=== PATIENT | female | born 1990 | race Caucasian/White ===

== ENCOUNTER 2016-07-17 21:19 | Emergency (ER) | payer BC ==
[2016-07-17] MEDS ORDERED: ACETAMINOPHEN 325 MG TABLET PO ONE (21:36)
[2016-07-17] MEDS ORDERED: ACETAMINOPHEN 325 MG TABLET ONE (21:40)
[2016-07-17 22:02] LABS: HEMATOCRIT 37.4 % (36.0-47.0); HEMOGLOBIN 13.1 g/dL (12.0-15.5); HGB HCT DIFFERENCE 1.9; MEAN CORPUSCULAR HEMOGLOBIN 31.3 pg (27.0-33.4); MEAN CORPUSCULAR HGB CONC 35.1 g/dL (32.0-36.0); MEAN CORPUSCULAR VOLUME 89 fl (80-97); RED CELL DISTRIBUTION WIDTH 12.7 % (11.5-14.0); WHITE BLOOD COUNT 5.8 10^3/uL (4.0-10.5)
[2016-07-17 22:10] LABS: APPEARANCE,URINE SLIGHTLY-CLOUDY; BILIRUBIN,URINE NEGATIVE (NEGATIVE); GLUCOSE, URINE NEGATIVE (NEGATIVE); KETONES,URINE 20 mg/dL (NEGATIVE); LEUKOCYTE ESTERASE,URINE TRACE (NEGATIVE); NITRITE,URINE NEGATIVE (NEGATIVE); PROTEIN,URINE NEGATIVE (NEGATIVE); URINE SPECIFIC GRAVITY 1.019
[2016-07-17 22:22] LABS: ALANINE AMINOTRANSFERASE 38 U/L (9-52); ALBUMIN 4.4 g/dL (3.5-5.0); ALKALINE PHOSPHATASE 50 U/L (38-126); ANION GAP 14 (5-19); ASPARTATE AMINO TRANSFERASE 32 U/L (14-36); BILIRUBIN,DIRECT 0.1 mg/dL (0.0-0.4); BILIRUBIN,TOTAL 0.6 mg/dL (0.2-1.3); BLOOD UREA NITROGEN 11 mg/dL (7-20); CALCIUM 9.3 mg/dL (8.4-10.2); CARBON DIOXIDE 26 mmol/L (22-30); CHLORIDE 97 mmol/L (98-107); CREATININE RESULT 0.64 mg/dL (0.52-1.25); GLUCOSE 112 mg/dL (75-110); POTASSIUM 3.5 mmol/L (3.6-5.0); SODIUM 136.5 mmol/L (137-145); TOTAL PROTEIN 7.1 g/dL (6.3-8.2)
[2016-07-17] MEDS ORDERED: IBUPROFEN 600 MG TABLET PO ONE (23:06)
--- NOTE | 2016-07-17 23:09 | ER Document Report ---
ED General - General Time seen by provider: 23:00 Mode of Arrival: Ambulatory Information source: Patient TRAVEL OUTSIDE OF THE [place] IN LAST 30 DAYS: No - HPI Onset: Other - see HPI note Similar symptoms previously: No Recently seen / treated by doctor: No <MARY COSTELLO - Last Filed: 07/18/16 01:16> <MARVIN LOPEZ - Last Filed: 07/18/16 02:58> - General Chief Complaint: Flu Symptoms Stated Complaint: POSSIBLE PINK EYE/FLU SYMPTOMS Notes: Patient is a 25 year old female presenting to the ED for flu like symptoms and discharge from her left eye. 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 Patient states she has had fevers, chills, body aches, and headaches. Patient states her left eye was red and swollen this morning and later became itchy with some green drainage. Patient states she took some ibuprofen for her fevers and she started taking Theraflu yesterday as a precaution. 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 Patient did not receive a flu shot this year. (MARY COSTELLO) - Related Data Allergies/Adverse Reactions: pseudoephedrine [From Sudafed] Allergy (Verified 07/17/16 21:33) Tachycardia Past Medical History - General Information source: Patient - Social History Smoking Status: Never Smoker Cigarette use (# per day): No Chew tobacco use (# tins/day): No Frequency of alcohol use: None Drug Abuse: None Family History: None Patient has suicidal ideation: No Patient has homicidal ideation: No - Past Medical History Cardiac Medical History: Reports: Hx Heart Murmur - 4/4 systolic ejection murmur Past Surgical History: Reports: Hx Cardiac Surgery, Hx Orthopedic Surgery - Immunizations Hx Diphtheria, Pertussis, Tetanus Vaccination: Yes <MARY COSTELLO - Last Filed: 07/18/16 01:16> Review of Systems - Review of Systems Constitutional: See HPI, Chills, Fever, Malaise EENT: See HPI, Eye pain, Eye discharge, Nose congestion Cardiovascular: No symptoms reported Respiratory: No symptoms reported Gastrointestinal: No symptoms reported Genitourinary: No symptoms reported Female Genitourinary: No symptoms reported Musculoskeletal: See HPI Skin: No symptoms reported Hematologic/Lymphatic: No symptoms reported Neurological/Psychological: See HPI, Headaches -: Yes All other systems reviewed and negative <MARY COSTELLO - Last Filed: 07/18/16 01:16> Physical Exam - Vital signs Interpretation: Tachycardic, Febrile - General General appearance: Appears well, Alert In distress: Mild - HEENT Head: Normocephalic, Atraumatic Eyes: Normal, Other - scleral reddness to the left eye Pupils: PERRL Mucous membranes: Moist - Respiratory Respiratory status: No respiratory distress Chest status: Nontender Breath sounds: Normal Chest palpation: Normal - Cardiovascular Rhythm: Regular Heart sounds: Normal auscultation Murmur: Yes - 07/03 systolic ejection - Abdominal Inspection: Normal Distension: No distension Bowel sounds: Normal Tenderness: Nontender Organomegaly: No organomegaly - Back Back: Normal, Nontender - Extremities General upper extremity: Normal inspection, Normal ROM, Normal strength General lower extremity: Normal inspection, Normal ROM, Normal strength - Neurological Neuro grossly intact: Yes Cognition: Normal Orientation: AAOx4 [place] Coma Scale Eye Opening: Spontaneous Ean Coma Scale Verbal: Oriented Ean Coma Scale Motor: Obeys Commands Ean Coma Scale Total: 15 Speech: Normal - Psychological Associated symptoms: Normal affect, Normal mood - Skin Skin Temperature: Warm Skin Moisture: Dry <MARY COSTELLO - Last Filed: 07/18/16 01:16> Course - Laboratory Result Diagrams: 07/17/16 21:45 07/17/16 21:45 <MARY COSTELLO - Last Filed: 07/18/16 01:16> - Laboratory Result Diagrams: 07/17/16 21:45 07/17/16 21:45 <MARVIN LOPEZ - Last Filed: 07/18/16 02:58> - Re-evaluation Re-evalutation: 07/18/16 02:56 Patient presents emergency Department with a 3 day history of fever Tmax 101 bodyaches nonproductive cough and today green-yellow discharge from her left eye. Patient states that she is not been exposed to anyone that she is aware of that has a flu. She's been taking TheraFlu and Tylenol which brings the fever down. Her cough is not productive of sputum and is no associated with shortness of breath. She denies any headaches altered mental status neck pain or stiffness. She has any chest pain shortness of breath recent history of travel surgery mobilization DVT or pulmonary emboli no nausea vomiting dull pain diarrhea or chance of . On examination patient is febrile otherwise well-appearing nontoxic no acute distress no meningeal signs and oriented 3 negative for the flu, will treat conjunctivitis with Bleph-10. Tylenol Motrin for fever. Primary care physician and discussed reasons for ED return sooner ( MARVIN LOPEZ) - Vital Signs Vital signs: Temp Pulse Resp BP Pulse Ox 98.5 F 76 16 98/52 L 99 07/17/16 22:47 07/18/16 00:28 07/18/16 00:28 07/18/16 00:28 07/18/16 00:28 - Laboratory Laboratory results interpreted by me: 07/17/16 07/17/16 21:45 21:45 Sodium 136.5 L Potassium 3.5 L Chloride 97 L Glucose 112 H Urine Ketones 20 H Urine Urobilinogen 2.0 H Ur Leukocyte Esterase TRACE H Urine Ascorbic Acid 40 H Discharge <MARY COSTELLO - Last Filed: 07/18/16 01:16> <MARVIN LOPEZ - Last Filed: 07/18/16 02:58> - Discharge Clinical Impression: acute upper respiratory illness, conjunctivitis of the left eye acute Condition: Stable Disposition: HOME, SELF-CARE Additional Instructions: Fever Fever is the body's reaction to infection. Fever can also occur with illnesses that create fever-producing substances in the body. By itself, fever is not harmful. It helps the body fight invading germs. We are more concerned with: (1) What's causing the fever? (2) How can we keep you more comfortable until the fever goes away? Early in an illness, symptoms are often so vague that a diagnosis can't be made. If the doctor hasn't identified a clear cause for your fever, you will probably develop new symptoms within the next two days. Contact the doctor if you develop severe worsening headache, rash, chest pain, cough with yellow or green sputum, difficulty breathing, abdominal pain, or other new symptoms. There is no reason to treat a fever if you're comfortable. If the fever is causing aches, headache, and fatigue, you can treat it with ibuprofen (Advil , Nuprin, etc) or acetaminophen (Tylenol). Follow the directions on the bottle. Get plenty of liquids (three quarts per day). Rest. Physical work or sports will raise the temperature higher and make you feel much worse. Dress lightly. If you're chilling, this means the temperature is trying to go higher. Take ibuprofen or acetaminophen. When you feel sweaty and "feverish" the temperature is coming down. If the fever doesn't go away within two days or if you become more ill, call the doctor or return at once for re-examination. Upper Respiratory Illness You have a viral infection of the respiratory passages -- a "cold." This common infection causes nasal congestion, drainage, and often sore throat and cough. It is caused by a virus and is highly contagious. The disease usually lasts a week or more, though the worst symptoms are usually over in 3 or 4 days. There is no "cure" for the viral infection -- it must run its course. If there is a complication, such as bacterial infection in the nose, sinuses, middle ear, or bronchial tubes, antibiotics may be required, but antibiotics won 't affect the virus. If you smoke, you should STOP!! Drink plenty of fluids. A humidifier may help. An expectorant medication or decongestant may make you more comfortable. Use acetaminophen or ibuprofen for fever or aches. See the doctor if fever persists over two or three days, if there is any significant worsening of your symptoms, or if you simply fail to improve as expected. Conjunctivitis You have an infection in your eye, commonly known as "pink eye." Conjunctivitis causes redness, mild discomfort, itching, and mattering on the eyelids. It is very contagious, so you must be careful to wash your hands after touching your face so you don't pass the infection on to others. Conjunctivitis is caused by both viruses and bacteria. It usually responds quickly to treatment with antibiotic drops. These should be placed in the eye as prescribed (usually every three to four hours while you're awake). If you wear contact lenses, don't put them in your eyes until the infection is cleared and you are no longer using the drops (unless your doctor advises you otherwise). Should you develop increasing eye pain, severe swelling, decreased vision, or fail to improve as expected, please return for re-examination. Prescriptions: Sulfacetamide Sodium [Bleph-10] 2 drop OD Q4H #5 ml Forms: Return to Work Referrals: [facility] [Provider Group] - Follow up in 3-5 days Scribe Attestation: 07/18/16 02:58 I personally performed the services described in the documentation reviewed the documentation recorded by my scribe in my presence and it accurately and completely records my words and actions (MARVIN LOPEZ) Scribe Documentation - Scribe Written by Scribe:: Mary Costello 07/18/16 1:06 acting as scribe for :: Stanley <MARY COSTELLO - Last Filed: 07/18/16 01:16>
[2016-07-18 00:29] VITALS: BP 98/52
== END 2016-07-18 00:29 | disposition home or self-care (01) ==
LOC: ER 21:19
DX: J39.9 Disease of upper respiratory tract, unspecified (principal); H10.32 Unspecified acute conjunctivitis, left eye; R50.9 Fever, unspecified; R00.0 Tachycardia, unspecified; R53.81 Other malaise; R05 Cough; R09.81 Nasal congestion; R01.1 Cardiac murmur, unspecified; Z88.8 Allergy status to other drugs, medicaments and biological substances
CPT/HCPCS: 36415; 71020; 80053; 81001; 81025; 85027; 87804; 99283

== ENCOUNTER 2016-12-08 17:25 | Emergency (ER) | payer BC ==
--- NOTE | 2016-12-08 18:02 | ER Document Report ---
ED Medical Screen (RME) - General Chief Complaint: Headache Stated Complaint: HEADACHE AND NUMBNESS Time Seen by Provider: 12/08/16 17:59 Mode of Arrival: Ambulatory Information source: Patient, Friend TRAVEL OUTSIDE OF THE [place] IN LAST 30 DAYS: No - HPI Patient complains to provider of: SCHILLING/numbness Onset: Other - pt with c/o SCHILLING with intermittent L side numbness for the past 1 and 1/2 weeks. - Related Data Allergies/Adverse Reactions: pseudoephedrine [From Sudafed] Allergy (Verified 12/08/16 17:29) Tachycardia Past Medical History - Past Medical History Cardiac Medical History: Reports: Hx Heart Murmur - / systolic ejection murmur Renal/ Medical History: Denies: Hx Peritoneal Dialysis Past Surgical History: Reports: Hx Cardiac Surgery, Hx Orthopedic Surgery - Immunizations Hx Diphtheria, Pertussis, Tetanus Vaccination: Yes Physical Exam - Vital signs Vitals: Temp Pulse Resp BP Pulse Ox 98.1 F 78 16 127/50 H 100 12/08/16 17:29 12/08/16 17:29 12/08/16 17:29 12/08/16 17:29 12/08/16 17:29 Course - Vital Signs Vital signs: Temp Pulse Resp BP Pulse Ox 98.1 F 78 16 127/50 H 100 12/08/16 17:29 12/08/16 17:29 12/08/16 17:29 12/08/16 17:29 12/08/16 17:29
[2016-12-08 18:37] LABS: ABSOLUTE EOSINOPHILS # (AUTO) 0.1 10^3/uL (0.0-0.6); ABSOLUTE LYMPHOCYTES (AUTO) 1.5 10^3/uL (0.5-4.7); ABSOLUTE MONOCYTES (AUTO) 0.7 10^3/uL (0.1-1.4); ABSOLUTE NEUT (AUTO) 3.9 10^3/uL (1.7-8.2); BASOPHILS % (AUTO) 0.4 % (0-2); EOSINOPHILS % (AUTO) 0.8 % (0-6); HEMATOCRIT 39.5 % (36.0-47.0); HEMOGLOBIN 13.2 g/dL (12.0-15.5); HGB HCT DIFFERENCE 0.1; LYMPHOCYTES % (AUTO) 24.7 % (13-45); MEAN CORPUSCULAR HEMOGLOBIN 30.9 pg (27.0-33.4); MEAN CORPUSCULAR HGB CONC 33.5 g/dL (32.0-36.0); MEAN CORPUSCULAR VOLUME 92 fl (80-97); MONOCYTES % (AUTO) 10.7 % (3-13); RED BLOOD COUNT 4.28 10^6/uL (3.72-5.28); RED CELL DISTRIBUTION WIDTH 13.8 % (11.5-14.0); SEGMENTED NEUTROPHILS % (AUTO) 63.4 % (42-78); WHITE BLOOD COUNT 6.1 10^3/uL (4.0-10.5)
[2016-12-08 18:48] LABS: ALANINE AMINOTRANSFERASE 31 U/L (9-52); ALBUMIN 5.1 g/dL (3.5-5.0); ALKALINE PHOSPHATASE 58 U/L (38-126); ANION GAP 15 (5-19); ASPARTATE AMINO TRANSFERASE 24 U/L (14-36); BILIRUBIN,DIRECT 0.3 mg/dL (0.0-0.4); BILIRUBIN,TOTAL 0.8 mg/dL (0.2-1.3); BLOOD UREA NITROGEN 16 mg/dL (7-20); CALCIUM 10.4 mg/dL (8.4-10.2); CARBON DIOXIDE 30 mmol/L (22-30); CHLORIDE 101 mmol/L (98-107); CREATININE RESULT 0.78 mg/dL (0.52-1.25); GLUCOSE 83 mg/dL (75-110); POTASSIUM 4.1 mmol/L (3.6-5.0); SODIUM 145.8 mmol/L (137-145); TOTAL PROTEIN 8.2 g/dL (6.3-8.2)
[2016-12-08 19:01] LABS: AMORPHOUS SEDIMENT,URINE TRACE /HPF; APPEARANCE,URINE SLIGHTLY-CLOUDY; BILIRUBIN,URINE NEGATIVE (NEGATIVE); GLUCOSE, URINE NEGATIVE (NEGATIVE); KETONES,URINE NEGATIVE (NEGATIVE); LEUKOCYTE ESTERASE,URINE SMALL (NEGATIVE); NITRITE,URINE NEGATIVE (NEGATIVE); PROTEIN,URINE NEGATIVE (NEGATIVE); UROBILINOGEN,URINE NEGATIVE mg/dL (<2.0)
--- NOTE | 2016-12-08 19:04 | RADIOLOGY REPORT (SQ) ---
EXAM DESCRIPTION: CT HEAD WITHOUT COMPLETED DATE/TIME: 12/08/2016 6:41 pm REASON FOR STUDY: SCHILLING with L side numbness COMPARISON: None. TECHNIQUE: Axial images acquired through the brain without intravenous contrast. Images reviewed wi th bone, brain and subdural windows. Images stored on PACS. All CT scanners at this facility use dose modulation, iterative reconstruction, and/or weight based d osing when appropriate to reduce radiation dose to as low as reasonably achievable (ALARA). [facility]: Dose Right [facility]: CareDose [facility]: Dose Right [facility]: Teradose 4D [facility]: [employer] RADIATION DOSE: Up-to-date CT equipment and radiation dose reduction techniques were employed. CTDIv ol: 64.6 mGy. DLP: 1163 mGy-cm. mGy. LIMITATIONS: None. FINDINGS: VENTRICLES: Normal size and contour. CEREBRUM: No masses. No hemorrhage. No midline shift. No evidence for acute infarction. Normal gra y/white matter differentiation. No areas of low density in the white matter. CEREBELLUM: No masses. No hemorrhage. No alteration of density. No evidence for acute infarction. EXTRAAXIAL SPACES: No fluid collections. No masses. ORBITS AND GLOBE: No intra- or extraconal masses. Normal contour of globe without masses. CALVARIUM: No fracture. PARANASAL SINUSES: No fluid or mucosal thickening. SOFT TISSUES: No mass or hematoma. OTHER: No other significant finding. IMPRESSION: NORMAL BRAIN CT WITHOUT CONTRAST. COMMENT: Quality ID # [id number]: Final reports with documentation of one or more dose reduction techniques (e.g., Automated exposure control, adjustment of the mA and/or kV according to patient size, use of iterative reconstruction technique) TECHNICAL DOCUMENTATION: JOB ID: [id number]- All Rights Reserved
[2016-12-08] MEDS ORDERED: METOCLOPRAMIDE HCL INJ/PF 10 MG/2 ML SDV IV ONE ×2 (19:32→20:50)
[2016-12-08] MEDS ORDERED: KETOROLAC TROMETHAMINE INJ/PF 30 MG/1 ML SDV IV ONE (19:32)
[2016-12-08] MEDS ORDERED: DIPHENHYDRAMINE HCL 50 MG/ML VIAL IV ONE ×2 (19:32→20:50)
[2016-12-08] MEDS ORDERED: NORMAL SALINE 1000 ML 500 ML IV ONE (19:33)
--- NOTE | 2016-12-08 19:34 | ER Document Report ---
ED Headache - General Chief Complaint: Headache Stated Complaint: HEADACHE AND NUMBNESS Time Seen by Provider: 12/08/16 17:59 Mode of Arrival: Ambulatory Notes: Patient is a 26-year-old female who comes emergency department for chief complaint of 1.5 weeks of daily headaches and sensations over her left hand and arm of tingling/numbness. This is intermittent. She denies current tingling or numbness, she states she felt down most of her left side earlier however. She states she has a pounding headache over her entire head. She denies head injury, neck stiffness or pain, fever, nausea or vomiting. She denies history of the same. Past medical history of heart murmur with previous transposition of the great vessels. She is on an oral contraceptive but no other medications. TRAVEL OUTSIDE OF THE [place] IN LAST 30 DAYS: No - Related Data Allergies/Adverse Reactions: pseudoephedrine [From [employer]] Allergy (Verified 12/08/16 17:29) Tachycardia Past Medical History - General Information source: Patient, Friend - Social History Smoking Status: Never Smoker Chew tobacco use (# tins/day): No Frequency of alcohol use: None Drug Abuse: None Lives with: Family Family History: None - Past Medical History Cardiac Medical History: Reports: Hx Heart Murmur - 4/4 systolic ejection murmur Renal/ Medical History: Denies: Hx Peritoneal Dialysis Past Surgical History: Reports: Hx Cardiac Surgery, Hx Orthopedic Surgery - Immunizations Hx Diphtheria, Pertussis, Tetanus Vaccination: Yes Review of Systems - Review of Systems Constitutional: No symptoms reported EENT: No symptoms reported Cardiovascular: No symptoms reported Respiratory: No symptoms reported Gastrointestinal: No symptoms reported Genitourinary: No symptoms reported Female Genitourinary: No symptoms reported Musculoskeletal: No symptoms reported Skin: No symptoms reported Hematologic/Lymphatic: No symptoms reported Neurological/Psychological: See HPI Physical Exam - Vital signs Vitals: Temp Pulse Resp BP Pulse Ox 98.1 F 78 16 127/50 H 100 12/08/16 17:29 12/08/16 17:29 12/08/16 17:29 12/08/16 17:29 12/08/16 17:29 Interpretation: Normal - General General appearance: Appears well, Alert In distress: None - HEENT Head: Normocephalic, Atraumatic Eyes: Normal Conjunctiva: Normal Extraocular movements intact: Yes Eyelashes: Normal Pupils: PERRL Sinus: Normal Nasal: Normal Mouth/Lips: Normal Mucous membranes: Normal Pharynx: Normal Neck: Normal - Respiratory Respiratory status: No respiratory distress Chest status: Nontender Breath sounds: Normal Chest palpation: Normal - Cardiovascular Rhythm: Regular Heart sounds: Normal auscultation Murmur: No - Abdominal Inspection: Normal Distension: No distension Bowel sounds: Normal Tenderness: Nontender Organomegaly: No organomegaly - Back Back: Normal, Nontender. No: Tender, Vertebra tenderness - Extremities General upper extremity: Normal inspection, Nontender, Normal color, Normal ROM , Normal temperature General lower extremity: Normal inspection, Nontender, Normal color, Normal ROM , Normal temperature, Normal weight bearing. No: Lonny's sign - Neurological Neuro grossly intact: Yes Cognition: Normal Orientation: AAOx4 Ean Coma Scale Eye Opening: Spontaneous Ean Coma Scale Verbal: Oriented Ean Coma Scale Motor: Obeys Commands [place] Coma Scale Total: 15 Speech: Normal Cranial nerves: Normal Cerebellar coordination: Normal Motor strength normal: LUE, RUE, LLE, RLE Additional motor exam normals: Equal 3d specialist Sensory: Normal - Psychological Associated symptoms: Normal affect, Normal mood - Skin Skin Temperature: Warm Skin Moisture: Dry Skin Color: Normal Course - Re-evaluation Re-evalutation: On my examination patient is reporting a headache although she has no signs of distress. She is alert and conversational. She cooperates with a normal neurological exam. She denies any paresthesias at this time. I did review the workup from triage, CAT scan of the head with no remarkable findings, laboratory workup unremarkable as well. Symptoms have been present 1.5 weeks intermittently per patient. No nuchal rigidity, vital signs are unremarkable. Blood pressure gets slightly low when patient sleeps although she is a very small individual and she states this is her normal blood pressure. Given migraine medication, she states headache is much improved but requests additional medication, second dose given, after this headache resolved. Patient smiling and has no complaints now. I discussed treatment at home with Marleny, I recommended she follow-up with a neurologist if symptoms continue, recommend primary care follow-up otherwise. Discussed return precautions in detail. Patient and significant other state understanding and agreement. - Vital Signs Vital signs: Temp Pulse Resp BP Pulse Ox 98.5 F 61 14 96/58 L 97 12/08/16 22:34 09/09/17 22:34 12/08/16 22:34 12/08/16 22:45 12/08/16 22:34 - Laboratory Result Diagrams: 12/08/16 18:20 12/08/16 18:20 Laboratory results interpreted by me: 12/08/16 12/08/16 18:20 18:46 Sodium 145.8 H Calcium 10.4 H Albumin 5.1 H Ur Leukocyte Esterase SMALL H Discharge - Discharge Clinical Impression: Paresthesia of arm Headache Qualifiers: Headache type: unspecified Headache chronicity pattern: acute headache Intractability: not intractable Qualified Code(s): R51 - Headache Condition: Stable Disposition: HOME, SELF-CARE Additional Instructions: The cat scan of your head is normal. Your lab workup shows no concerning abnormalities. Your neurological exam is normal. I suspect your symptoms are from an atypical migraine. I recommend neurology followup if symptoms continue (see referral). Return to the ED for any concerning symptoms - vomiting, fever, weakness, severe worsening headache, or any other concerning symptoms. Prescriptions: Butalb/Acetaminophen/Caffeine [Fioricet (50-325-40 mg) Tablet] 1 tab PO Q4HP PRN #30 tab PRN Reason: Referrals: JACKIE BANGURA MD [ACTIVE STAFF] - Follow up as needed
[2016-12-08 22:46] VITALS: BP 96/58
== END 2016-12-08 22:50 | disposition home or self-care (01) ==
LOC: ER 17:25
DX: R51 Headache (principal); R20.0 Anesthesia of skin
CPT/HCPCS: 96376; 99284; 96374; 96375; 36415; 85025; 81025; 80053; 81001; 70450; J1200; J1885; J2765; J7030

== ENCOUNTER 2016-12-17 12:54 | Emergency (ER) | payer BC ==
[2016-12-17] MEDS ORDERED: DIPHENHYDRAMINE HCL 50 MG/ML VIAL IV ONE (13:29)
[2016-12-17] MEDS ORDERED: PROCHLORPERAZINE EDISYLATE INJ 10 MG/2 ML VIAL IV ONE (13:29)
--- NOTE | 2016-12-17 13:29 | ER Document Report ---
ED Medical Screen (RME) - General Chief Complaint: Headache Stated Complaint: VOMITING BLOOD/HEAD ACHE Time Seen by Provider: 12/17/16 13:24 Mode of Arrival: Ambulatory Information source: Patient Notes: 26-year-old female who was diagnosed with migraine headache last week presents with complaints of continued migraine headache as well as vomiting blood. Patient was she has been taking ibuprofen the last 2 days admits to mild epigastric abdominal pain denies any fevers or chills I have greeted and performed a rapid initial assessment of this patient. A comprehensive ED assessment and evaluation of the patient, analysis of test results and completion of the medical decision making process will be conducted by additional ED providers. PHYSICAL EXAMINATION: GENERAL: Well-appearing, well-nourished and in no acute distress. HEAD: Atraumatic, normocephalic. EYES: Pupils equal round extraocular movements intact, conjunctiva are normal. ENT: Nares patent NECK: Normal range of motion LUNGS: No respiratory distress Musculoskeletal: Normal range of motion NEUROLOGICAL: Normal speech, normal gait. PSYCH: Normal mood, normal affect. SKIN: Warm, Dry, normal turgor, no rashes or lesions noted. TRAVEL OUTSIDE OF THE [place] IN LAST 30 DAYS: No - Related Data Allergies/Adverse Reactions: pseudoephedrine [From Sudafed] Allergy (Verified 12/17/16 13:08) Tachycardia Past Medical History - Social History Chew tobacco use (# tins/day): No Frequency of alcohol use: Occasional Drug Abuse: None - Past Medical History Cardiac Medical History: Reports: Hx Heart Murmur - 4/4 systolic ejection murmur Neurological Medical History: Reports: Hx Migraine Renal/ Medical History: Denies: Hx Peritoneal Dialysis Past Surgical History: Reports: Hx Cardiac Surgery, Hx Orthopedic Surgery - bilateral knee - Immunizations Hx Diphtheria, Pertussis, Tetanus Vaccination: Yes Physical Exam - Vital signs Vitals: Temp Pulse Resp BP Pulse Ox 97.6 F 59 L 16 117/64 100 12/17/16 13:11 12/17/16 13:11 12/17/16 13:11 12/17/16 13:11 12/17/16 13:11 Course - Vital Signs Vital signs: Temp Pulse Resp BP Pulse Ox 97.6 F 59 L 16 117/64 100 12/17/16 13:11 12/17/16 13:11 12/17/16 13:11 12/17/16 13:11 12/17/16 13:11
[2016-12-17 14:24] LABS: ABSOLUTE LYMPHOCYTES (AUTO) 0.7 10^3/uL (0.5-4.7); ABSOLUTE MONOCYTES (AUTO) 0.4 10^3/uL (0.1-1.4); ABSOLUTE NEUT (AUTO) 7.5 10^3/uL (1.7-8.2); BASOPHILS % (AUTO) 0.2 % (0-2); EOSINOPHILS % (AUTO) 0.1 % (0-6); HEMATOCRIT 38.2 % (36.0-47.0); HEMOGLOBIN 13.6 g/dL (12.0-15.5); HGB HCT DIFFERENCE 2.6; LYMPHOCYTES % (AUTO) 8.1 % (13-45); MEAN CORPUSCULAR HEMOGLOBIN 32.4 pg (27.0-33.4); MEAN CORPUSCULAR HGB CONC 35.7 g/dL (32.0-36.0); MEAN CORPUSCULAR VOLUME 91 fl (80-97); MONOCYTES % (AUTO) 5.1 % (3-13); RED BLOOD COUNT 4.21 10^6/uL (3.72-5.28); SEGMENTED NEUTROPHILS % (AUTO) 86.5 % (42-78); WHITE BLOOD COUNT 8.7 10^3/uL (4.0-10.5)
[2016-12-17] MEDS ORDERED: NORMAL SALINE 1000 ML 1,000 ML IV ONE (14:35)
[2016-12-17 14:36] LABS: APPEARANCE,URINE SLIGHTLY-CLOUDY; BILIRUBIN,URINE NEGATIVE (NEGATIVE); GLUCOSE, URINE NEGATIVE (NEGATIVE); KETONES,URINE 80 mg/dL (NEGATIVE); LEUKOCYTE ESTERASE,URINE NEGATIVE (NEGATIVE); NITRITE,URINE NEGATIVE (NEGATIVE); PROTEIN,URINE 100 mg/dL (NEGATIVE); URINE SPECIFIC GRAVITY 1.029; UROBILINOGEN,URINE NEGATIVE mg/dL (<2.0)
[2016-12-17 14:50] LABS: ALANINE AMINOTRANSFERASE 28 U/L (9-52); ALBUMIN 4.9 g/dL (3.5-5.0); ALKALINE PHOSPHATASE 62 U/L (38-126); ANION GAP 14 (5-19); ASPARTATE AMINO TRANSFERASE 22 U/L (14-36); BILIRUBIN,DIRECT 0.4 mg/dL (0.0-0.4); BILIRUBIN,TOTAL 0.9 mg/dL (0.2-1.3); BLOOD UREA NITROGEN 18 mg/dL (7-20); CALCIUM 10.2 mg/dL (8.4-10.2); CARBON DIOXIDE 25 mmol/L (22-30); CHLORIDE 102 mmol/L (98-107); CREATININE RESULT 0.57 mg/dL (0.52-1.25); GLUCOSE 96 mg/dL (75-110); TOTAL PROTEIN 8.1 g/dL (6.3-8.2)
--- NOTE | 2016-12-17 14:53 | ER Document Report ---
ED General - General Chief Complaint: Headache Stated Complaint: VOMITING BLOOD/HEAD ACHE Time Seen by Provider: 12/17/16 13:24 Mode of Arrival: Ambulatory TRAVEL OUTSIDE OF THE [place].S. IN LAST 30 DAYS: No - HPI Patient complains to provider of: Headache vomiting blood 4 Notes: Patient coming in for evaluation states headache bilateral temples similar to her headaches in the past also vomiting blood 4. Patient states was vomiting prior to these episodes recently seen for headaches with head CT performed that was negative. Patient states she is currently in school here in [place] but is from [place]. Patient states she does not have a local provider. 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 Neurological Medical History: Reports: Hx Migraine Renal/ Medical History: Denies: Hx Peritoneal Dialysis Past Surgical History: Reports: Hx Cardiac Surgery, Hx Orthopedic Surgery - bilateral knee - Immunizations Hx Diphtheria, Pertussis, Tetanus Vaccination: Yes Review of Systems - Review of Systems Constitutional: No symptoms reported EENT: No symptoms reported Cardiovascular: No symptoms reported Respiratory: No symptoms reported Gastrointestinal: Nausea, Vomiting, Blood in vomit Genitourinary: No symptoms reported Female Genitourinary: No symptoms reported Musculoskeletal: No symptoms reported Skin: No symptoms reported Hematologic/Lymphatic: No symptoms reported Neurological/Psychological: Headaches -: Yes All other systems reviewed and negative Physical Exam - Vital signs Vitals: Temp Pulse Resp BP Pulse Ox 97.6 F 59 L 16 117/64 100 12/17/16 13:11 12/17/16 13:11 12/17/16 13:11 12/17/16 13:11 12/17/16 13:11 Interpretation: Normal - General General appearance: Appears well, Alert - HEENT Head: Normocephalic, Atraumatic Eyes: Normal Pupils: PERRL - Respiratory Respiratory status: No respiratory distress Chest status: Nontender Breath sounds: Normal Chest palpation: Normal - Cardiovascular Rhythm: Regular Heart sounds: Normal auscultation Murmur: No - Abdominal Inspection: Normal Distension: No distension Bowel sounds: Normal Tenderness: Nontender Organomegaly: No organomegaly - Back Back: Normal, Nontender - Extremities General upper extremity: Normal inspection, Nontender, Normal color, Normal ROM , Normal temperature General lower extremity: Normal inspection, Nontender, Normal color, Normal ROM , Normal temperature, Normal weight bearing. No: Lonny's sign - Neurological Neuro grossly intact: Yes Cognition: Normal Orientation: AAOx4 Ean Coma Scale Eye Opening: Spontaneous [place] Coma Scale Verbal: Oriented [place] Coma Scale Motor: Obeys Commands Ean Coma Scale Total: 15 Speech: Normal Motor strength normal: LUE, RUE, LLE, RLE Sensory: Normal - Psychological Associated symptoms: Normal affect, Normal mood - Skin Skin Temperature: Warm Skin Moisture: Dry Skin Color: Normal Course - Re-evaluation Re-evalutation: 12/17/16 19:03 The patient presents with abdominal pain without signs of peritonitis or other life-threatening or serious etiology. The patient appears stable for discharge and has been instructed to return immediately if the symptoms worsen in any way , or in 8-12hr if not improved for re-evaluation. The patient has been instructed to return if the symptoms worsen or change in any way. The patient presents with headache without signs of SHAREPOINT APPLICATION ARCHITECT bleed, stroke, infection, or other serious etiology. The patient is neurologically intact. Given the extremely low risk of these diagnoses further testing and evaluation for these possibilities does not appear to be indicated at this time. The patient has been instructed to return if the symptoms worsen or change in any way.. - Vital Signs Vital signs: Temp Pulse Resp BP Pulse Ox 98.2 F 83 18 98/53 L 99 12/17/16 15:51 12/17/16 15:51 12/17/16 15:51 12/17/16 15:51 12/17/16 15:51 - Laboratory Result Diagrams: 12/17/16 14:09 12/17/16 14:09 Laboratory results interpreted by me: 12/17/16 12/17/16 14:09 14:09 Seg Neutrophils % 86.5 H Lymphocytes % 8.1 L Urine Protein 100 H Urine Ketones 80 H Discharge - Discharge Clinical Impression: Nausea & vomiting Qualifiers: Vomiting type: unspecified Vomiting Intractability: unspecified Qualified Code( s): R11.2 - Nausea with vomiting, unspecified Headache Qualifiers: Headache type: unspecified Headache chronicity pattern: unspecified pattern Intractability: not intractable Qualified Code(s): R51 - Headache Condition: Good Disposition: HOME, SELF-CARE Instructions: Vomiting ([facility]), Nausea or Vomiting, Nonspecific ([facility]), Family Physicians / Practices Additional Instructions: Follow-up with your primary care physician. Return to the ER if symptoms worsen. Take medications as prescribed. Prescriptions: Omeprazole 20 mg PO DAILY #14 tablet.dr Zuritaerazine Maleate [Compazine] 10 mg PO Q6 #20 tablet Forms: Return to Work
[2016-12-17 15:16] LABS: URINE BARBITURATES SCREEN UNCONFIRMED POSITIVE; URINE METHADONE SCREEN NEGATIVE; URINE OPIATES LOW NEGATIVE; URINE PHENCYCLIDINE SCREEN NEGATIVE
[2016-12-17 15:53] VITALS: BP 98/53
== END 2016-12-17 16:07 | disposition home or self-care (01) ==
LOC: ER 12:54
DX: R51 Headache (principal); K92.0 Hematemesis; R10.9 Unspecified abdominal pain; Z88.8 Allergy status to other drugs, medicaments and biological substances
CPT/HCPCS: 99283; 96361; 96374; 96375; 36415; 80307 ×2; 85025; 81025; 80053; 81001; J1200; J0780; J7030

== ENCOUNTER 2016-12-24 16:12 | Emergency (ER) | payer BC ==
[2016-12-24 16:29] VITALS: BP 117/85
--- NOTE | 2016-12-24 16:57 | ER Document Report ---
ED General - General Chief Complaint: Abdominal Pain Stated Complaint: VOMITING Time Seen by Provider: 12/24/16 16:47 Mode of Arrival: Medic Information source: Patient, Friend Notes: 26-year-old female presents by EMS with concerns for abdominal pain. Patient only states that she does not wish to be here wishes to go somewhere else but the EMS brought her here TRAVEL OUTSIDE OF THE U.S. IN LAST 30 DAYS: No - HPI Onset: Just prior to arrival Onset/Duration: Sudden Quality of pain: Achy Severity: Mild Pain Level: Denies Associated symptoms: Other Exacerbated by: Denies Relieved by: Denies Similar symptoms previously: Yes Recently seen / treated by doctor: Yes - Related Data Allergies/Adverse Reactions: pseudoephedrine [From Sudafed] Allergy (Verified 12/17/16 13:08) Tachycardia Past Medical History - Social History Smoking Status: Never Smoker Cigarette use (# per day): No Chew tobacco use (# tins/day): No Smoking Education Provided: No Family History: None - Past Medical History Cardiac Medical History: 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 Denies recent illness. EENT: Denies eye, ear, throat, or mouth pain or symptoms. Denies nasal or sinus congestion or discharge. Denies throat, tongue, or mouth swelling or difficulty swallowing. CARDIOVASCULAR: Denies chest pain. Denies palpitations or racing or irregular heart beat. Denies ankle edema. RESPIRATORY: Denies cough, cold, or chest congestion. Denies shortness of breath, difficulty breathing, or wheezing. GASTROINTESTINAL: Admits to abdominal pain GENITOURINARY: Denies difficulty urinating, painful urination, burning, frequency, blood in urine, or discharge. FEMALE GENITOURINARY: Denies vaginal bleeding, heavy or abnormal periods, irregular periods. Denies vaginal discharge or odor. MUSCULOSKELETAL: Denies back or neck pain or stiffness. Denies joint pain or swelling. SKIN: Denies rash, lesions or sores. HEMATOLOGIC : Denies easy bruising or bleeding. LYMPHATIC: Denies swollen, enlarged glands. NEUROLOGICAL: Denies confusion or altered mental status. Denies passing out or loss of consciousness. Denies dizziness or lightheadedness. Denies headache. Denies weakness or paralysis or loss of use of either side. Denies problems with gait or speech. Denies sensory loss, numbness, or tingling. Denies seizures. PSYCHIATRIC: Denies anxiety or stress. Denies depression, suicidal ideation, or homicidal ideation. ALL OTHER SYSTEMS REVIEWED AND NEGATIVE. PHYSICAL EXAMINATION: GENERAL: Well-appearing, well-nourished and in no acute distress. HEAD: Atraumatic, normocephalic. EYES: Pupils equal round extraocular movements intact, conjunctiva are normal. ENT: Nares patent NECK: Normal range of motion LUNGS: No respiratory distress Musculoskeletal: Normal range of motion NEUROLOGICAL: Normal speech, normal gait. PSYCH: Crying tearful. SKIN: Warm, Dry, normal turgor, no rashes or lesions noted. Dictation was performed using [employer] voice recognition software -: Yes ROS unobtainable due to patient's medical condition Physical Exam - Vital signs Vitals: Temp Pulse Resp BP Pulse Ox 0 F L 74 20 117/85 100 12/24/16 16:21 12/24/16 16:21 12/24/16 16:21 12/24/16 16:21 12/24/16 16:21 Course - Re-evaluation Re-evalutation: 12/24/16 16:55 Patient on arrival screamed she wants to leave, I asked her friend to enter the room discussed with her why she wanted to go. Patient continues to say she wants to leave go somewhere else. Friend states her mother in [place] request that she go to a different hospital since she has been here twice before and have not found anything wrong with her except for ulcers. Patient continues to yell she wants to leave. Therefore given that she refuses to allow me to see her patient will be allowed to leave AMA as she is alert oriented understands risks and benefits. Patient's friend states that she is "acting like a child" After performing a Medical Screening Examination, I spoke with the patient at length in regards to leaving the hospital against medical advice. I do not believe the patient should leave but the patient is alert oriented x4, understands the risks and benefits of staying and leaving including disability and . Pt understands that she can return at any time for further care and is more than welcome to do so. Pt verbalizes this understanding. 12/24/16 20:29 - Vital Signs Vital signs: Temp Pulse Resp BP Pulse Ox 0 F L 74 20 117/85 100 12/24/16 16:21 12/24/16 16:21 12/24/16 16:21 12/24/16 16:21 12/24/16 16:21 Discharge - Discharge Clinical Impression: ama Abdominal pain Qualifiers: Abdominal location: generalized Qualified Code(s): R10.84 - Generalized abdominal pain Condition: Stable Disposition: AGAINST MEDICAL ADVICE Additional Instructions: Patient is leaving AGAINST MEDICAL ADVICE, she was seen by myself refuses any intervention, refuses any further evaluation. I believe this is a terrible idea what you are alert oriented your family members and your friends agree with you leaving
== END 2016-12-24 17:34 | disposition left against medical advice (07) ==
LOC: ER 16:12
DX: R10.84 Generalized abdominal pain (principal); R11.10 Vomiting, unspecified
CPT/HCPCS: 99284

== ENCOUNTER 2019-06-07 04:55 | Inpatient (IN) | payer MEDICAID ==
[2019-06-07 05:30] LABS: APPEARANCE,URINE SLIGHTLY-CLOUDY; BILIRUBIN,URINE NEGATIVE (NEGATIVE); COLOR,URINE YELLOW; GLUCOSE, URINE NEGATIVE (NEGATIVE); KETONES,URINE NEGATIVE (NEGATIVE); LEUKOCYTE ESTERASE,URINE LARGE (NEGATIVE); NITRITE,URINE NEGATIVE (NEGATIVE); PROTEIN,URINE NEGATIVE (NEGATIVE); URINE SPECIFIC GRAVITY 1.013; UROBILINOGEN,URINE NEGATIVE mg/dL (<2.0)
[2019-06-07 05:53] LABS: URINE AMPHETAMINES SCREEN NEGATIVE; URINE BARBITURATES SCREEN NEGATIVE; URINE BENZODIAZEPINES SCREEN NEGATIVE; URINE COCAINE SCREEN NEGATIVE; URINE MARIJUANA (THC) SCREEN NEGATIVE; URINE METHADONE SCREEN NEGATIVE; URINE PHENCYCLIDINE SCREEN NEGATIVE
[2019-06-07] MEDS ORDERED: RINGERS SOLUTION,LACTATED 1,000 ML IV ONE (07:11)
[2019-06-07] MEDS ORDERED: OXYTOCIN/NORMAL SALINE 20 UNIT/1,000 ML RTUINJ IV PRN ×2 (07:12→14:49)
[2019-06-07] MEDS ORDERED: MISOPROSTOL 0.2 MG TABLET ONE (07:14)
[2019-06-07] MEDS ORDERED: LIDOCAINE 1% INJ-PF (10 MG/ML) 30 ML SDV ONE (07:14)
[2019-06-07] MEDS ORDERED: OXYTOCIN/NORMAL SALINE 20 UNIT/1,000 ML RTUINJ ONE (07:14)
[2019-06-07] MEDS ORDERED: OXYTOCIN 10 UNIT/ML VIAL ONE (07:14)
--- NOTE | 2019-06-07 07:51 | Admission Physical ---
Datetime Report Generated by CPN: 06/07/2019 07:51 CURRENT ADMISSION Chief Complaint: Uterine Contractions Admit Impression : Term, Intrauterine ; Active Labor Admit Plan: Admit to Unit; Initiate Labor Protocol ALLERGIES Medication Allergies: Yes Medication Allergies: pseudoephedrine/Tachycardia (06/07/2019); amitriptyline (06/07/2019) OBSTETRICAL HISTORY EDC: 06/15/2019 00:00 : 1 Para: 0 Term: 0 : 0 SAB: 0 IAB: 0 Ectopic: 0 Livin Cesareans: 0 VBACs: 0 Multiple Births: 0 Gestational Diabetes: No Rh Sensitization: No Incompetent Cervix: No LEE: No Infertility: No ART Treatment: No Uterine Anomaly: No IUGR: No Hx Previous C/S: No Macrosomia: No Hx Loss/Stillborn: No PIH: No Hx : No Placenta Previa/Abruption: No Depression/PP Depression: No PTL/PROM: No Post Hemorrhage: No Current Procedures: Ultrasound Obstetrical History Comments: G1: current SEE RECORDS Alcohol: No Marijuana : No Cocaine: No Other Illicit Drugs: No Cigarettes: Never Smoker. [id number] MEDICAL HISTORY Diabetes: No Blood Transfusion: No Pulmonary Disease (Asthma, TB): No Breast Disease: No Hypertension: No Electric Fork Operator Surgery: No Heart Disease: No Hosp/Surgery: Yes Autoimmune Disorder: No Anesthetic Complications: No Kidney Disease: No Abnormal Pap Smear: No Neuro/Epilepsy: No Psychiatric Disorders: No Other Medical Diseases: No Hepatitis/Liver Disease: No Significant Family History: No Varicosities/Phlebitis: No Trauma/Violence : No Thyroid Dysfunction: No Medical History Comments: pt had transposition of great vessels at surgery as echo normal at [facility] R. knee growth plate fusion INFECTIOUS HISTORY Gonorrhea: No Genital Herpes: No Chlamydia: No Tuberculosis: No Syphilis: No Hepatitis: No HIV/AIDS Exposure: No Rash or Viral Illness: No HPV: No PHYSICAL EXAM General: Normal HEENT: Normal Neurologic: Normal Thyroid: Normal Heart: Normal Lungs: Normal Breast: Normal Back: Normal Abdomen: Normal Genitourinary Exam: Normal Extremities: Normal DTRs: Normal Pelvic Type: Adequate Vital Signs: Reviewed VAGINAL EXAM Dilatation: 5 Effacement: 50 Station: -2 MEMBRANES Membranes: Intact FETUS A EGA: 38.6 Monitoring: External US FHR- Baseline: 125 Variability: Moderate 6-25bpm Accelerations: 15X15 Decelerations: None Presentation: Vertex PLANS FOR LABOR AND DELIVERY Labor and Delivery: None Pain Management: Epidural Feeding Preference: Breast Benefit of Breast Feed Discussed: Yes Circumcision: No INFORMED CONSENT Informed Consent Obtained: Vaginal Delivery; Vacuum/Forceps Assist; Risks, Benefits and Alternatives Discussed Signature: with User ID: [email or web address] : with User ID: [email or web address]
[2019-06-07 08:03] LABS: ABSOLUTE LYMPHOCYTES (AUTO) 1.1 10^3/uL (0.5-4.7); ABSOLUTE MONOCYTES (AUTO) 0.7 10^3/uL (0.1-1.4); ABSOLUTE NEUT (AUTO) 8.6 10^3/uL (1.7-8.2); BASOPHILS % (AUTO) 0.2 % (0-2); EOSINOPHILS % (AUTO) 0.3 % (0-6); HEMOGLOBIN 12.8 g/dL (12.0-15.5); LYMPHOCYTES % (AUTO) 10.7 % (13-45); MEAN CORPUSCULAR HEMOGLOBIN 32.6 pg (27.0-33.4); MEAN CORPUSCULAR HGB CONC 34.6 g/dL (32.0-36.0); MEAN CORPUSCULAR VOLUME 94 fl (80-97); MONOCYTES % (AUTO) 6.7 % (3-13); PLATELET COUNT 258 10^3/uL (150-450); RED BLOOD COUNT 3.94 10^6/uL (3.72-5.28); RED CELL DISTRIBUTION WIDTH 12.6 % (11.5-14.0); SEGMENTED NEUTROPHILS % (AUTO) 82.1 % (42-78); TOTAL CELLS COUNTED % (AUTO) 100 %; WHITE BLOOD COUNT 10.5 10^3/uL (4.0-10.5)
[2019-06-07] MEDS ORDERED: FENTANYL/BUPIVACAINE/NS/PF 300 MCG/150 ML RTUINJ EPI ONE (08:51)
[2019-06-07] MEDS ORDERED: EPHEDRINE SULFATE INJ 50 MG/1 ML AMPULE ONE (08:51)
[2019-06-07] MEDS ORDERED: BUPIVACAINE HCL 0.25 % INJ/PF (2.5 MG/1 ML) 30 ML VIAL ONE (08:52)
[2019-06-07] MEDS: RINGERS SOLUTION,LACTATED 1,000 ML IV PRN ×2 (08:57→09:29)
--- NOTE | 2019-06-07 10:40 | Warning Signs in Babies ---
VOD Warning Signs Datetime Report Generated by [facility]: 06/07/2019 10:40 VOD#608 -Warning Signs in Babies: Viewed with Parent(s)/Family (06/07/2019 10:39:Jan Clements RN)
[2019-06-07] MEDS ORDERED: PROMETHAZINE HCL INJ 25 MG/1 ML VIAL IV PRN (14:49)
[2019-06-07] MEDS ORDERED: DIPHENHYDRAMINE HCL 25 MG CAPSULE PO PRN (14:49)
[2019-06-07] MEDS ORDERED: MEASLES,MUMPS&RUBELLA VACC/PF 0.5 ML VIAL SUBCUT PRN (14:49)
[2019-06-07] MEDS ORDERED: PSEUDOEPHEDRINE HCL 30 MG TABLET PO PRN (14:49)
[2019-06-07] MEDS ORDERED: ACETAMINOPHEN 650 MG SUPP.RECT PR PRN (14:49)
[2019-06-07] MEDS ORDERED: PROMETHAZINE HCL 25 MG SUPP.RECT PR PRN (14:49)
[2019-06-07] MEDS ORDERED: DIPH/PERTUSS(ACELL)/TETANUS VAC/PF 0.5 ML SYR (>=10YO) IM PRN (14:49)
[2019-06-07] MEDS ORDERED: BENZOCAINE/MENTHOL AEROSOL SPRAY 56 ML TOP PRN (14:49)
[2019-06-07] MEDS ORDERED: PROMETHAZINE HCL 25 MG TABLET PO PRN (14:49)
[2019-06-07] MEDS ORDERED: GLYCERIN/WITCH HAZEL LEAF 1 EACH MED..WIPE TP PRN (14:49)
[2019-06-07] MEDS ORDERED: DIBUCAINE 1% OINTMENT 28 GM TP PRN (14:49)
[2019-06-07] MEDS ORDERED: MAGNESIUM HYDROXIDE SUSP 30 ML UDCUP PO PRN (14:49)
[2019-06-07] MEDS ORDERED: ZOLPIDEM TARTRATE 5 MG TABLET PO PRN (14:49)
[2019-06-07] MEDS ORDERED: NA PHOS,M-B/NA PHOS,DI-BA (ADULT) 133 ML ENEMA PR PRN (14:49)
[2019-06-07] MEDS ORDERED: ACETAMINOPHEN WITH CODEINE #3 TABLET PO PRN ×2 (14:49)
[2019-06-07] MEDS ORDERED: BENZOCAINE/MENTHOL AEROSOL SPRAY 56 ML ONE (15:21)
--- NOTE | 2019-06-07 16:21 | Delivery Summary ---
Del Sum A-C Datetime Report Generated by CPN: 06/07/2019 16:20 DELIVERY PERSONNEL DELIVERY PERSONNEL: [id number] Delivery Doctor:: Kassy Quezada MD Labor and Delivery Nurse:: Jan Clements RNbone worker Nurse:: Chloe Palmer RN Special Forces Officer/SPRINKLER INSTALLER: Maye Mendez, MULTI OPERATION MACHINE OPERATOR Additional Personnel: : SMerrill,SN MATERNAL INFORMATION Delivery Anesthesia: Epidural Medications After Delivery: Pitocin Drip 20 Units/1000ml NSS Meds After Delivery Comment: pitocin 20 units in 1000mL nss Estimated Blood Loss (ml): 250 Delivery QBL: 225 Maternal Complications: None LABOR SUMMARY EDC: 06/15/2019 00:00 No. Babies in Womb: 1 Attempted: No Labor Anesthesia: Epidural LABOR INFORMATION Reason for Induction: Not Applicable Onset of Labor: 06/07/2019 06:59 Complete Dilatation: 06/07/2019 13:04 Oxytocin: N/A Group B Beta Strep: negative Antibiotics # of Doses: 0 Steroids Given: None Reason Steroids Not Administered: Not Applicable MEMBRANES Membranes Rupture Method: Artificial Rupture of Membranes: 06/07/2019 13:39 Length of Rupture (hr): 0.83 Amniotic Fluid Color: Clear Amniotic Fluid Amount: Small Amniotic Fluid Odor: Normal STAGES OF LABOR Stage 1 hr: 6 Stage 1 min: 5 Stage 2 hr: 1 Stage 2 min: 25 Stage 3 hr: 0 Stage 3 min: 4 Total Time in Labor hr: 7 Total Time in Labor min: 34 VAGINAL DELIVERY Episiotomy: None Laceration #1: Perineal Laceration Extension #1: Second Degree Laceration #2: None Laceration Extension #2: N/A Laceration Repair: Yes Laceration Repair Note: repair with 3-0 chromic in usual fashion. Sponge Count Correct: Yes Sharps Count Correct: Yes CSECTION DELIVERY Primary Indication: N/A Secondary Indication: N/A CSection Incidence: N/A Labor: N/A Elective: N/A CSection Incision: N/A BABY A INFORMATION Delivery Date/Time: 06/07/2019 14:29 Method of Delivery: Vaginal Nurse Controlled Delivery: No Born in Route : No : N/A Forceps: N/A Vacuum Extraction: N/A Shoulder Dystocia : No PRESENTATION/POSITION BABY A Presentation: Cephalic Cephalic Presentation: Vertex Vertex Position: Right Occipital Anterior Breech Presentation: N/A PLACENTA INFORMATION BABY A Placenta Delivery Time : 06/07/2019 14:33 Placenta Method of Delivery: Spontaneous Placenta Status: Delivered SCORES BABY A Heart Rate 1 min: >100 bpm Resp Effort 1 min: Good Cry Reflex Irritability 1 min: Cough or Sneeze or Pulls Away Muscle Tone 1 min: Active Motion Color 1 min: Body [place], Extremities Blue Resuscitation Effort 1 min: Tactile Stimulation SCORE 1 MIN: 9 Heart Rate 5 min: >100 bpm Resp Effort 5 min: Good Cry Reflex Irritability 5 min: Cough or Sneeze or Pulls Away Muscle Tone 5 min: Active Motion Color 5 min: Body [place], Extremities Blue Resuscitation Effort 5 min: N/A SCORE 5 MIN: 9 INFORMATION BABY A Gestational Age at Delivery: 38.6 Gestational Status: Early Term- 37- 38.6 Weeks Infant Outcome : Liveborn Condition : Stable Sex: Female IDENTIFICATION BABY A Verification Date/Time: 06/07/2019 15:01 ID Band Number: [id number] Mother's Name Verified: Yes RN Verifying : B Baidy RN Additional Verifying Personnel: T Tyree RN WEIGHT/LENGTH BABY A Infant Birthweight (gm): 2801 Weight (lb): 6 Weight (oz): 3 Infant Length (in): 19.50 Infant Length (cm): 49.53 CORD INFORMATION BABY A No. Cord Vessels: 3 Nuchal Cord : N/A Cord Blood Taken: Yes-For Eval (Mom's Blood Type - or O+) Suction: None ASSESSMENT BABY A Infant Complications: None Physical Findings at Delivery: Within Normal Limits Infant Respirations: Appears Normal Skin to Skin: Yes Skin to Skin Time (min): 45 Quality Assurance Supervisor Chassis/ALS Called : No Infant Care By: B Estela RN Transferred To: Remains with Mother BABY B INFORMATION : N/A SIGNATURES Signature: with User ID: [email or web address]
[2019-06-07] MEDS ORDERED: DOCUSATE SODIUM 100 MG CAPSULE ONE (17:00)
[2019-06-07] MEDS ORDERED: FERROUS SULFATE 325 MG TABLET PO ONE (17:01)
[2019-06-07] MEDS: DOCUSATE SODIUM 100 MG CAPSULE PO SCH (17:02)
[2019-06-07] MEDS: FERROUS SULFATE 325 MG TABLET PO SCH (17:02)
[2019-06-07] MEDS: IBUPROFEN 800 MG TABLET PO SCH (21:18)
[2019-06-07] MEDS: FAMOTIDINE 20 MG TABLET PO SCH (21:19)
[2019-06-08] MEDS: IBUPROFEN 800 MG TABLET PO SCH ×3 (05:23→22:01)
[2019-06-08 06:54] LABS: HEMATOCRIT 27.2 % (36.0-47.0); MEAN CORPUSCULAR HEMOGLOBIN 32.9 pg (27.0-33.4); MEAN CORPUSCULAR HGB CONC 34.6 g/dL (32.0-36.0); MEAN CORPUSCULAR VOLUME 95 fl (80-97); PLATELET COUNT 229 10^3/uL (150-450); RED BLOOD COUNT 2.86 10^6/uL (3.72-5.28); RED CELL DISTRIBUTION WIDTH 13.1 % (11.5-14.0); WHITE BLOOD COUNT 13.6 10^3/uL (4.0-10.5)
[2019-06-08 07:03] LABS: HEMOGLOBIN 9.4 g/dL (12.0-15.5)
--- NOTE | 2019-06-08 09:14 | PDOC PROGRESS REPORT ---
Subjective-OB Progress Note for:: 06/08/19 - PP Day #1, doing well, UOB voiding, O+, Rubella Immnue, Physical Exam (OB) Vital Signs: Temp Pulse Resp BP Pulse Ox 97.7 F 62 18 103/61 100 06/08/19 07:48 06/08/19 07:48 06/07/19 21:17 06/08/19 07:48 06/08/19 07:48 Intake & Output 06/07/19 06/08/19 06/09/19 06:59 06:59 06:59 Intake Total 767 Output Total 325 Balance 442 Weight - General General Appearance: Appears well, Alert In distress: None - PIH/Pre-Eclampsia Headache: Absent Epigastric Pain: No Visual Changes: No - Lochia Lochia Amount: Scant < 10 ml Lochia Color: Rubra/Red - Abdomen Description: Tender, Soft Hernia Present: No Fundal Description: Firm, Midline Fundal Height: u/u - u/2 - Respiratory Respiratory Status: No respiratory distress - Abdominal Distension: No distension Tenderness: Nontender - Genitourinary Genitourinary Note: voiding - Extremities Upper extremity: Normal inspection Lower extremities: Normal inspection - Neurological Cognition: Normal Orientation: AAOx4 - Psychological Associated symptoms: Normal affect, Normal mood - Skin Skin Temperature: Warm Skin Moisture: Dry Objective-Diagnostic Laboratory: 06/08/19 06:21 06/08/19 06:21 WBC 13.6 H RBC 2.86 L Hgb 9.4 L D Hct 27.2 L MCV 95 MCH 32.9 MCHC 34.6 RDW 13.1 Plt Count 229 Assessment and Plan(PN) - Assessment and Plan (1) (normal spontaneous vaginal delivery) Is this a current diagnosis for this admission?: Yes (2) Obstetric vaginal laceration with second degree perineal laceration Is this a current diagnosis for this admission?: Yes - Time Spent with Patient Time with patient: Less than 15 minutes Medications reviewed and adjusted accordingly: Yes - Disposition Anticipated Discharge: Home Within: within 24 hours
[2019-06-08] MEDS: FAMOTIDINE 20 MG TABLET PO SCH ×2 (09:50→22:01)
[2019-06-08] MEDS: SENNOSIDES/DOCUSATE 8.6-50 MG 1 EACH TABLET PO SCH (09:50)
[2019-06-08] MEDS: PRENATAL VITAMIN W DHA CAPSULE PO SCH (09:50)
[2019-06-08] MEDS: DOCUSATE SODIUM 100 MG CAPSULE PO SCH ×2 (09:50→17:53)
[2019-06-08] MEDS: FERROUS SULFATE 325 MG TABLET PO SCH ×2 (09:50→17:53)
[2019-06-08] MEDS ORDERED: FAMOTIDINE 20 MG TABLET ONE (21:31)
[2019-06-09] MEDS: IBUPROFEN 800 MG TABLET PO SCH (05:24)
[2019-06-09] MEDS: SENNOSIDES/DOCUSATE 8.6-50 MG 1 EACH TABLET PO SCH (09:11)
[2019-06-09] MEDS: DOCUSATE SODIUM 100 MG CAPSULE PO SCH (09:11)
[2019-06-09] MEDS: FERROUS SULFATE 325 MG TABLET PO SCH (09:11)
[2019-06-09] MEDS: PRENATAL VITAMIN W DHA CAPSULE PO SCH (09:11)
[2019-06-09] MEDS: FAMOTIDINE 20 MG TABLET PO SCH (09:25)
--- NOTE | 2019-06-09 10:04 | PDOC DISCHARGE SUMMARY ---
Impression - Admit/DC Date/PCP Admission Date/Primary Care Provider: 06/07/19 07:14 MICA KHAN MD Discharge Date: 06/09/19 - Discharge Diagnosis (1) Active labor at term Is this a current diagnosis for this admission?: Yes (2) (normal spontaneous vaginal delivery) Is this a current diagnosis for this admission?: Yes (3) Obstetric vaginal laceration with second degree perineal laceration Is this a current diagnosis for this admission?: Yes - Additional Information Discharge Diet: Regular Discharge Activity: Balance Activity w/Rest, Pelvic Rest Referrals: [facility] [Provider Group] Home Medications: Vits96/Iron Fum/Folic [ Tablet] 1 tab PO DAILY 06/07/19 HPI Gestational Age: 38+6 Reason(s) for Admission: Induction of Labor Procedures: NST Intrapartum Procedure(s): Spontaneous Vaginal Delivery Complication(s): Laceration-Perineal Laceration-Degree: 2nd Results Laboratory Results: WBC 13.6 10^3/uL (4.0-10.5) H 06/08/19 06:21 RBC 2.86 10^6/uL (3.72-5.28) L 06/08/19 06:21 Hgb 9.4 g/dL (12.0-15.5) L D 06/08/19 06:21 Hct 27.2 % (36.0-47.0) L 06/08/19 06:21 MCV 95 fl (80-97) 06/08/19 06:21 MCH 32.9 pg (27.0-33.4) 06/08/19 06:21 MCHC 34.6 g/dL (32.0-36.0) 06/08/19 06:21 RDW 13.1 % (11.5-14.0) 06/08/19 06:21 Plt Count 229 10^3/uL (150-450) 06/08/19 06:21 Lymph % (Auto) 10.7 % (13-45) L 06/07/19 07:34 [place] % (Auto) 6.7 % (3-13) 06/07/19 07:34 Eos % (Auto) 0.3 % (0-6) 06/07/19 07:34 Baso % (Auto) 0.2 % (0-2) 06/07/19 07:34 Absolute Neuts (auto) 8.6 10^3/uL (1.7-8.2) H 06/07/19 07:34 Absolute Lymphs (auto) 1.1 10^3/uL (0.5-4.7) 06/07/19 07:34 Absolute Monos (auto) 0.7 10^3/uL (0.1-1.4) 06/07/19 07:34 Absolute Eos (auto) 0.0 10^3/uL (0.0-0.6) 06/07/19 07:34 Absolute Basos (auto) 0.0 10^3/uL (0.0-0.2) 06/07/19 07:34 Seg Neutrophils % 82.1 % (42-78) H 06/07/19 07:34 Urine Color YELLOW 06/07/19 05:07 Urine Appearance SLIGHTLY-CLOUDY 06/07/19 05:07 Urine pH 8.0 (5.0-9.0) 06/07/19 05:07 Ur Specific [place] 1.013 06/07/19 05:07 Urine Protein NEGATIVE mg/dL (NEGATIVE) 06/07/19 05:07 Urine Glucose (UA) NEGATIVE mg/dL (NEGATIVE) 06/07/19 05:07 Urine Ketones NEGATIVE mg/dL (NEGATIVE) 06/07/19 05:07 Urine Blood SMALL (NEGATIVE) H 06/07/19 05:07 Urine Nitrite NEGATIVE (NEGATIVE) 06/07/19 05:07 Urine Bilirubin NEGATIVE (NEGATIVE) 06/07/19 05:07 Urine Urobilinogen NEGATIVE mg/dL (<2.0) 06/07/19 05:07 Ur Leukocyte Esterase LARGE (NEGATIVE) H 06/07/19 05:07 Urine Ascorbic Acid NEGATIVE (NEGATIVE) 06/07/19 05:07 Urine Opiates Screen NEGATIVE 06/07/19 05:07 Urine Methadone Screen NEGATIVE 06/07/19 05:07 Ur Barbiturates Screen NEGATIVE 06/07/19 05:07 Ur Phencyclidine Scrn NEGATIVE 06/07/19 05:07 Ur Amphetamines Screen NEGATIVE 06/07/19 05:07 U Benzodiazepines Scrn NEGATIVE 06/07/19 05:07 Urine Cocaine Screen NEGATIVE 06/07/19 05:07 U Marijuana (THC) Screen NEGATIVE 06/07/19 05:07 RPR NONREACTIVE (NONREACTIVE) 06/07/19 07:34 Blood Type O POSITIVE 06/07/19 07:34 Antibody Screen NEGATIVE 06/07/19 07:34 Plan Plan of Treatment: follow up in 4 weeks at [facility] for post check
[2019-06-09 10:13] VITALS: BP 108/59
== END 2019-06-09 12:15 | disposition home or self-care (01) | DRG 807 ==
LOC: LC 04:55 → LR 07:14 → 2S 19:07
PROVIDERS: ADMIT Obstetrics & Gynecology; ATTEND Obstetrics & Gynecology
PROC: 10E0XZZ Delivery of Products of Conception, External Approach (ICD-10-PCS; principal; 2019-06-07)
PROC: 0KQM0ZZ Repair Perineum Muscle, Open Approach (ICD-10-PCS; 2019-06-07)
DX: O70.1 Second degree perineal laceration during delivery (principal); Z37.0 Single live birth; Z3A.38 38 weeks gestation of pregnancy
CPT/HCPCS: 36415; 80307; 81005; 85025; 85027; 86592; 86850; 86900; 86901; 94760; J2590; J3010; J3490